=== PATIENT | male | born 1980 | race Caucasian/White ===

== ENCOUNTER 2021-06-20 00:06 | Emergency (ER) | payer OTHER ==
[~2021-06-20] VITALS: Ht 190.5 cm; Wt 86.2 kg
[2021-06-20 00:10] VITALS: BP 143/89
[2021-06-20] MEDS ORDERED: KETOROLAC TROMETHAMINE INJ 30 MG/ML VIAL ONE (01:08)
[2021-06-20] MEDS: KETOROLAC TROMETHAMINE INJ 60 MG/2 ML VIAL IM ONE (01:11)
[2021-06-20] MEDS ORDERED: IBUP-1957 PO ×2 (01:58→02:02)
[2021-06-20] MEDS ORDERED: ACET-2030 PO (01:58)
== END 2021-06-20 02:08 | disposition home or self-care (01) ==
LOC: ER 00:33
DX: S53.491A Other sprain of right elbow, initial encounter (principal); S63.592A Other specified sprain of left wrist, initial encounter; Z98.890 Other specified postprocedural states; Z79.899 Other long term (current) drug therapy; W01.0XXA Fall on same level from slipping, tripping and stumbling without subsequent striking against object, initial encounter; Y93.68 Activity, volleyball (beach) (court); Y92.89 Other specified places as the place of occurrence of the external cause; Y99.8 Other external cause status
CPT/HCPCS: 73080; 73110; 96372; 99284; J1885

== ENCOUNTER 2021-12-22 19:20 | Emergency (ER) | payer OTHER ==
[~2021-12-22] VITALS: Ht 190.5 cm; Wt 94.3 kg
[~2021-12-22 19:20] MED LIST: ACET-2030 PO; IBUP-1957 PO
[2021-12-22] MEDS ORDERED: FLUORESCEIN SODIUM OPHTH 1 EA STRIP ONE (19:51)
[2021-12-22 20:00] VITALS: BP 155/84
[2021-12-22] MEDS ORDERED: TETRACAINE HCL 0.5% OPHTALMIC 15 ML BOTTLE OP ONE (20:00)
[2021-12-22] MEDS ORDERED: FLUORESCEIN SODIUM OPHTH 1 EA STRIP OP ONE (20:00)
--- NOTE | 2021-12-22 20:10 | NUR ---
1 LITER N/S EYE LAVAGE VIA FAISAL LENS INITIATED IN R EYE PER MD ORDER. PT TOLERATED WELL.
[2021-12-22] MEDS ORDERED: CIPR5DRO EACHEYE (20:34)
== END 2021-12-22 20:52 | disposition home or self-care (01) ==
LOC: ER 19:20
DX: H57.12 Ocular pain, left eye (principal); F17.200 Nicotine dependence, unspecified, uncomplicated; Z96.7 Presence of other bone and tendon implants; Z79.1 Long term (current) use of non-steroidal anti-inflammatories (NSAID)
CPT/HCPCS: 99283; J7030

== ENCOUNTER 2025-09-07 21:18 | Emergency (ER) | payer OTHER ==
[~2025-09-07] VITALS: Ht 190.5 cm; Wt 83.9 kg
[~2025-09-07 21:18] MED LIST changes: +CIPR5DRO EACHEYE
[2025-09-07] MEDS ORDERED: TDAP [DIPH/PERTUSSIS/TET] 0.5 ML VIAL IM ONE (22:28)
[2025-09-07] MEDS ORDERED: HYDROCODONE/APAP 5/325MG TABLET ONE (22:28)
[2025-09-07] MEDS ORDERED: HYDROCODONE/APAP 5/325MG TABLET PO ONE (22:30)
[2025-09-07] MEDS: TDAP [DIPH/PERTUSSIS/TET] 0.5 ML VIAL IM ONE (22:50)
[2025-09-07] MEDS ORDERED: IBUPROFEN 400 MG TABLET ONE (22:52)
[2025-09-07] MEDS: IBUPROFEN 400 MG TABLET PO ONE (22:54)
[2025-09-08 00:23] VITALS: BP 124/84; TEMP 98.7; O2SAT 99
== END 2025-09-08 00:24 | disposition home or self-care (01) ==
LOC: ER 21:20
DX: S39.012A Strain of muscle, fascia and tendon of lower back, initial encounter (principal); S43.401A Unspecified sprain of right shoulder joint, initial encounter; S50.811A Abrasion of right forearm, initial encounter; F17.200 Nicotine dependence, unspecified, uncomplicated; R51.9 Headache, unspecified; Z88.5 Allergy status to narcotic agent; V03.10XA Pedestrian on foot injured in collision with car, pick-up truck or van in traffic accident, initial encounter; Y93.89 Activity, other specified; Y92.410 Unspecified street and highway as the place of occurrence of the external cause; Y99.8 Other external cause status
CPT/HCPCS: 70450-TC; 72131-TC; 73030-TC; 73200-TC; 90715